=== PATIENT | male | born 1940 | race Caucasian/White ===

== ENCOUNTER 2021-08-26 15:02 | Emergency (ER) | payer MEDICARE, BC ==
[2021-08-26] MEDS: Albuterol/Ipratropium 3.0-0.5 MG/3 ML Neb Soln NEB ONE (16:00)
[2021-08-26] MEDS: methylPREDNISolone Sodium Succinate 125 MG/2 ML SDV IM ONE (16:00)
--- NOTE | 2021-08-26 16:45 | EDM.PDOC ---
ED HPI GENERAL MEDICAL PROBLEM - General Chief Complaint: Respiratory Problem Stated Complaint: POSSIBLE COVID Time Seen by Provider: 08/26/21 15:15 Source of Information: Reports: Patient, Family History Limitations: Reports: No Limitations - History of Present Illness INITIAL COMMENTS - FREE TEXT/NARRATIVE: Patient presented to the ED because of dyspnea,coughing productive of grayish phlegm for several days. There is no associated fever, chills, N/V/D. She has a history of COPD,Asthma and stage lung CA in which he underwent chemotherapy and radiation. He was seen in the clinic today and subsequently referred to the ED for further evaluation. - Related Data Allergies Allergy/AdvReac Type Severity Reaction Status Date / Time Penicillins Allergy Severe Anaphylactic Verified 08/26/21 15:20 Shock Home Meds: Home Meds Tamsulosin [Flomax] 0.4 mg PO DAILY 02/18/16 [History] atorvaSTATin [Lipitor] 40 mg PO BEDTIME 02/18/16 [History] Albuterol Sulfate [Albuterol Sulfate Hfa] 2 inh IH Q4H PRN #1 hfa.aer.ad 08/26/21 [Rx] Albuterol Sulfate [Albuterol Sulfate Hfa] 2 puff IH Q4H PRN 08/26/21 [History] Albuterol/Ipratropium [DuoNeb 3.0-0.5 MG/3 ML] 3 ml INH Q4HR PRN #90 ml 08/26/21 [Rx] Azithromycin [Zithromax] 500 mg PO DAILY #5 tab 08/26/21 [Rx] Umeclidinium Brm/Vilanterol Tr [Anoro Ellipta 62.5-25 MCG] 1 puff INH DAILY 08/26/21 [History] predniSONE [Prednisone] 40 mg PO DAILY #10 tablet 08/26/21 [Rx] Past Medical History HEENT History: Reports: Cataract, Impaired Vision Cardiovascular History: Reports: Aneurysm, High Cholesterol, Hypertension, Other (See Below) Other Cardiovascular History: AAA, BILATERAL CAROTID ARTERY DISEASE Respiratory History: Reports: COPD Gastrointestinal History: Reports: None Genitourinary History: Reports: BPH, Other (See Below) Other Genitourinary History: MALIGNANT NEOPLASM OF PROSTATE, ELEVATED PSA, NODULAR PROSTATE WITH URINARY OBSTRUCTION, PROSTATE CANCER S/P RADIATION Musculoskeletal History: Reports: Fracture, Other (See Below) Other Musculoskeletal History: OSTEOARTHRTIS KNEE. Neurological History: Reports: None Psychiatric History: Reports: None Endocrine/Metabolic History: Reports: None Hematologic History: Reports: Anemia Immunologic History: Reports: None Oncologic (Cancer) History: Reports: Lung, Prostate Dermatologic History: Reports: None - Infectious Disease History Infectious Disease History: Reports: Chicken Pox, Measles - Past Surgical History Head Surgeries/Procedures: Reports: None HEENT Surgical History: Reports: Oral Surgery, Tonsillectomy Cardiovascular Surgical History: Reports: None Respiratory Surgical History: Reports: None, Lung Biopsies GI Surgical History: Reports: None, Colonoscopy, EGD Male Surgical History: Reports: None Endocrine Surgical History: Reports: None Neurological Surgical History: Reports: None Musculoskeletal Surgical History: Reports: Arthroscopic Knee Other Musculoskeletal Surgeries/Procedures:: RIGHT KNEE SCOPE Social & Family History - Family History Cardiac: Reports: Hypertension Psychiatric: Reports: None Endocrine/Metabolic: Reports: None - Tobacco Use Tobacco Use Status *Q: Current Every Day Tobacco User Years of Tobacco use: 50 Packs/Tins Daily: 0 - Recreational Drug Use Recreational Drug Use: No ED ROS GENERAL - Review of Systems Review Of Systems: See Below Constitutional: Reports: No Symptoms HEENT: Reports: No Symptoms Respiratory: Reports: Shortness of Breath, Cough, Sputum Cardiovascular: Reports: No Symptoms Endocrine: Reports: No Symptoms GI/Abdominal: Reports: No Symptoms : Reports: No Symptoms Musculoskeletal: Reports: No Symptoms Neurological: Reports: No Symptoms Psychiatric: Reports: No Symptoms ED EXAM, GENERAL - Physical Exam Exam: See Below Exam Limited By: No Limitations General Appearance: Alert, No Apparent Distress Ears: Normal External Exam, Normal Canal, Hearing Grossly Normal, Normal TMs Nose: Normal Inspection, Normal Mucosa, No Blood Throat/Mouth: Normal Inspection, Normal Lips, Normal Teeth, Normal Gums, Normal Oropharynx, Normal Voice Head: Atraumatic, Normocephalic Neck: Normal Inspection, Supple, Non-Tender, Full Range of Motion Respiratory/Chest: No Respiratory Distress, Rhonchi, Wheezing Cardiovascular: Normal Peripheral Pulses, Regular Rate, Rhythm, No Edema, No Gallop, No JVD, No Murmur GI/Abdominal: Normal Bowel Sounds, Soft, Non-Tender, No Organomegaly Back Exam: Normal Inspection, Full Range of Motion Extremities: Normal Inspection, Normal Range of Motion, Non-Tender Neurological: Alert, Oriented, CN II-XII Intact, Normal Cognition, Normal Gait, Normal Reflexes, No Motor/Sensory Deficits Course - Vital Signs Text/Narrative:: Lab/CXR result was reviewed and discussed with patient Yecenia bellamy Solumedrol 125 mg IM x1 His oxygen saturation was 97% on RA with the above treatment and his dyspnea resolved. Last Recorded V/S: Last Vital Signs Temp Pulse Resp BP Pulse Ox 96 08/26/21 15:10 - Orders/Labs/Meds Orders: Active Orders 24 hr Category Date Time Status RT Aerosol Therapy [RC] ASDIRECTED Care 08/26/21 15:39 Active Chest 1V Frontal [CR] Stat Exams 08/26/21 15:36 Taken Labs: Laboratory Tests 08/26/21 08/26/21 08/26/21 Range/Units 16:00 16:00 16:00 WBC 4.2 (3.2-10.1) x10-3/uL RBC 3.13 L (3.90-5.90) x10(6)uL Hgb 11.0 L (12.9-17.7) g/dL Hct 32.5 L (38.3-50.1) % MCV 103.8 H (80.8-98.7) fL MCH 35.2 H (27.0-33.3) pg MCHC 33.9 (28.7-35.3) g/dL RDW 14.6 (12.4-15.0) % Plt Count 246 (117-477) x10(3)uL MPV 6.9 (6.7-11.0) fL Neut % (Auto) 84.6 H (40.3-71.8) % Lymph % (Auto) 4.9 L (15.8-45.3) % [place] % (Auto) 10.0 (5.5-15.2) % Eos % (Auto) 0.2 (0.1-6.8) % Baso % (Auto) 0.3 (0.3-3.8) % Neut # (Auto) 3.6 (1.7-6.9) x10-3/uL Lymph # (Auto) 0.2 L (0.5-4.5) x10-3/uL [place] # (Auto) 0.4 (0.0-1.2) x10-3/uL Eos # (Auto) 0.0 (0.0-0.6) x10-3/uL Baso # (Auto) 0.0 (0.0-0.3) x10-3/uL Sodium 140 (135-145) mmol/L Potassium 4.0 (3.5-5.3) mmol/L Chloride 100 (100-110) mmol/L Carbon Dioxide 29 (21-32) mmol/L BUN 16 (7-18) mg/dL Creatinine 1.2 (0.70-1.30) mg/dL Est Cr Clr Drug Dosing TNP Estimated GFR (MDRD) 58 L (>60) BUN/Creatinine Ratio 13.3 (9-20) Glucose 98 (80-116) mg/dL Calcium 8.9 (8.6-10.2) mg/dL Total Bilirubin 0.5 (0.1-1.3) mg/dL AST 33 H (5-25) IU/L ALT 23 (12-36) U/L Alkaline Phosphatase 92 (56-112) IU/L Troponin I 17.2 (4.0-60.3) pg/mL NT-Pro-B Natriuret Pep 647 H (<=450) pg/mL Total Protein 8.1 H (6.0-8.0) g/dL Albumin 3.0 L (3.2-4.6) g/dL Globulin 5.1 g/dL Albumin/Globulin Ratio 0.6 SARS-CoV-2 RNA (EDILIA) (NEGATIVE) 08/26/21 Range/Units 16:10 WBC (3.2-10.1) x10-3/uL RBC (3.90-5.90) x10(6)uL Hgb (12.9-17.7) g/dL Hct (38.3-50.1) % MCV (80.8-98.7) fL MCH (27.0-33.3) pg MCHC (28.7-35.3) g/dL RDW (12.4-15.0) % Plt Count (117-477) x10(3)uL MPV (6.7-11.0) fL Neut % (Auto) (40.3-71.8) % Lymph % (Auto) (15.8-45.3) % [place] % (Auto) (5.5-15.2) % Eos % (Auto) (0.1-6.8) % Baso % (Auto) (0.3-3.8) % Neut # (Auto) (1.7-6.9) x10-3/uL Lymph # (Auto) (0.5-4.5) x10-3/uL [place] # (Auto) (0.0-1.2) x10-3/uL Eos # (Auto) (0.0-0.6) x10-3/uL Baso # (Auto) (0.0-0.3) x10-3/uL Sodium (135-145) mmol/L Potassium (3.5-5.3) mmol/L Chloride (100-110) mmol/L Carbon Dioxide (21-32) mmol/L BUN (7-18) mg/dL Creatinine (0.70-1.30) mg/dL Est Cr Clr Drug Dosing Estimated GFR (MDRD) (>60) BUN/Creatinine Ratio (9-20) Glucose (80-116) mg/dL Calcium (8.6-10.2) mg/dL Total Bilirubin (0.1-1.3) mg/dL AST (5-25) IU/L ALT (12-36) U/L Alkaline Phosphatase (56-112) IU/L Troponin I (4.0-60.3) pg/mL NT-Pro-B Natriuret Pep (<=450) pg/mL Total Protein (6.0-8.0) g/dL Albumin (3.2-4.6) g/dL Globulin g/dL Albumin/Globulin Ratio SARS-CoV-2 RNA (EDILIA) Negative (NEGATIVE) Meds: Medications Discontinued Medications Generic Name Dose Route Start Last Admin Trade Name Freq PRN Reason Stop Dose Admin Albuterol/Ipratropium 3 ml 08/26/21 15:38 08/26/21 16:00 Albuterol/Ipratropium 3.0-0.5 Mg/3 Ml Neb Soln NEB 08/26/21 15:39 3 ml ONETIME ONE Administration Methylprednisolone Sodium Succinate 125 mg 08/26/21 15:38 08/26/21 16:00 Methylprednisolone Sodium Succinate 125 Mg/2 Ml Sdv IM 08/26/21 15:39 125 mg ONETIME ONE Administration Departure - Departure Time of Disposition: 17:00 Disposition: Home, Self-Care 01 Condition: Good Clinical Impression: COPD exacerbation, Asthma exacerbation - Discharge Information Prescriptions: Albuterol Sulfate [Albuterol Sulfate Hfa] 2 inh IH Q4H PRN #1 hfa.aer.ad PRN Reason: Shortness Of Breath Albuterol/Ipratropium [DuoNeb 3.0-0.5 MG/3 ML] 3 ml INH Q4HR PRN #90 ml PRN Reason: Shortness Of Breath predniSONE [Prednisone] 40 mg PO DAILY #10 tablet Azithromycin [Zithromax] 500 mg PO DAILY #5 tab Instructions: Chronic Obstructive Pulmonary Disease Exacerbation, [id number], Asthma Attack Referrals: PCP,None [Primary Care Provider] - Forms: ED Department Discharge Additional Instructions: Please read discharge instructions on Asthma and COPD exacerbation Albuterol neb every 4 hours as needed Prednisone 40 mg daily for 5 days starting tomorrow morning Zithromax 500 mg daily for 5 days starting today Follow up as needed Sepsis Event Note (ED) - Focused Exam Vital Signs: Vital Signs Pulse Ox 08/26/21 15:10 96 - My Orders Last 24 Hours: My Active Orders 08/26/21 15:36 Chest 1V Frontal [CR] Stat 08/26/21 15:39 RT Aerosol Therapy [RC] ASDIRECTED - Assessment/Plan Last 24 Hours: My Active Orders 08/26/21 15:36 Chest 1V Frontal [CR] Stat 08/26/21 15:39 RT Aerosol Therapy [RC] ASDIRECTED
[2021-08-26 17:43] VITALS: BP 149/92; PULSE 62
--- NOTE | 2021-08-27 10:09 | CR ---
CHEST ONE VIEW INDICATION: Cough/dyspnea/[id number] history of smoking. FINDINGS: AP portable upright view of the chest 08/26/21 was compared with 02/21/16. The heart remains normal in size. The aorta is tortuous with calcification in the arch and descending portion. Moderate dextroconcave scoliosis is noted at the lower middle thoracic spine. Findings compatible with COPD are noted. Somewhat heavy markings are scattered throughout the lungs likely due to pulmonary fibrosis. No consolidating pneumonia or effusion was identified. However, minimal patchy bronchial pneumonia is difficult to exclude in a few areas of heavy markings including suprahilar on the left, perihilar on the right and basilar on the right. This should be correlated clinically. IMPRESSION: 1. No definite acute process but difficult to exclude areas of patchy bronchial pneumonia bilaterally. 2. COPD. 3. Pulmonary fibrosis. 4. ASD aorta. 5. Scoliosis. MTDD
== END 2021-08-26 17:30 | disposition home or self-care (01) ==
LOC: FB.ED 15:02
DX: J44.1 Chronic obstructive pulmonary disease with (acute) exacerbation (principal); E78.00 Pure hypercholesterolemia, unspecified; I10 Essential (primary) hypertension; N40.0 Benign prostatic hyperplasia without lower urinary tract symptoms; Z20.822 Contact with and (suspected) exposure to COVID-19; Z88.0 Allergy status to penicillin; Z79.899 Other long term (current) drug therapy; Z72.0 Tobacco use
CPT/HCPCS: 36415; 71045; 80053; 83880; 84484; 85025; 94640; 96372; 99285-25; J2930; J7620-GY; U0002

== ENCOUNTER 2021-08-31 09:24 | Observation (INO) | payer MEDICARE, BC ==
--- NOTE | 2021-08-31 09:42 | EDM.PDOC ---
ED HPI GENERAL MEDICAL PROBLEM - General Chief Complaint: Respiratory Problem Stated Complaint: ASTHMA Time Seen by Provider: 08/31/21 09:30 Source of Information: Reports: Patient, Old Records, RN History Limitations: Reports: No Limitations - History of Present Illness INITIAL COMMENTS - FREE TEXT/NARRATIVE: 80 yo male was seen here 5 d ago for respiratory complaints. He had a CXR that showed pulmonary fibrosis and COPD. He was sent home with bronchodilators, azithromycin and prednisone. He has not followed up with his primary since then. His Covid test on that visit was negative and he had a normal WBC ct. His oxygen sats on [employer] were 96%. Since his ER visit he has not run a fever, but is more SOB. He will be out of his prednisone tomorrow. 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 He has a nebulizer at home that he did use today with some benefit. Is still smoking, but has cut down. Has stage 2 lung CA. Onset: Gradual Duration: Day(s):, Getting Worse Location: Reports: Chest Quality: Reports: Other (pain not reported) Severity: Moderate Improves with: Reports: Rest Worsens with: Reports: Movement (exertion) Context: Reports: Other (See HPI) Associated Symptoms: Reports: Cough, Shortness of Breath. 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 (see below) (See HPI) - Related Data Allergies Allergy/AdvReac Type Severity Reaction Status Date / Time Penicillins Allergy Severe Anaphylactic Verified 08/26/21 15:20 Shock Home Meds: Home Meds Tamsulosin [Flomax] 0.4 mg PO DAILY 02/18/16 [History] atorvaSTATin [Lipitor] 40 mg PO BEDTIME 02/18/16 [History] Albuterol Sulfate [Albuterol Sulfate Hfa] 2 inh IH Q4H PRN #1 hfa.aer.ad 08/26/21 [Rx] Albuterol Sulfate [Albuterol Sulfate Hfa] 2 puff IH Q4H PRN 08/26/21 [History] Albuterol/Ipratropium [DuoNeb 3.0-0.5 MG/3 ML] 3 ml INH Q4HR PRN #90 ml 08/26/21 [Rx] Azithromycin [Zithromax] 500 mg PO DAILY #5 tab 08/26/21 [Rx] Umeclidinium Brm/Vilanterol Tr [Anoro Ellipta 62.5-25 MCG] 1 puff INH DAILY 08/26/21 [History] predniSONE [Prednisone] 40 mg PO DAILY #10 tablet 08/26/21 [Rx] Past Medical History HEENT History: Reports: Cataract, Impaired Vision Cardiovascular History: Reports: Aneurysm, High Cholesterol, Hypertension, Other (See Below) Other Cardiovascular History: AAA, BILATERAL CAROTID ARTERY DISEASE Respiratory History: Reports: COPD Gastrointestinal History: Reports: None Genitourinary History: Reports: BPH, Other (See Below) Other Genitourinary History: MALIGNANT NEOPLASM OF PROSTATE, ELEVATED PSA, NODULAR PROSTATE WITH URINARY OBSTRUCTION, PROSTATE CANCER S/P RADIATION Musculoskeletal History: Reports: Fracture, Other (See Below) Other Musculoskeletal History: OSTEOARTHRTIS KNEE. Neurological History: Reports: None Psychiatric History: Reports: None Endocrine/Metabolic History: Reports: None Hematologic History: Reports: Anemia Immunologic History: Reports: None Oncologic (Cancer) History: Reports: Lung, Prostate Dermatologic History: Reports: None - Infectious Disease History Infectious Disease History: Reports: Chicken Pox, Measles - Past Surgical History Head Surgeries/Procedures: Reports: None HEENT Surgical History: Reports: Oral Surgery, Tonsillectomy Cardiovascular Surgical History: Reports: None Respiratory Surgical History: Reports: None, Lung Biopsies GI Surgical History: Reports: None, Colonoscopy, EGD Male Surgical History: Reports: None Endocrine Surgical History: Reports: None Neurological Surgical History: Reports: None Musculoskeletal Surgical History: Reports: Arthroscopic Knee Other Musculoskeletal Surgeries/Procedures:: RIGHT KNEE SCOPE Social & Family History - Family History Cardiac: Reports: Hypertension Psychiatric: Reports: None Endocrine/Metabolic: Reports: None ED ROS GENERAL - Review of Systems Review Of Systems: See Below Constitutional: Reports: Malaise. Denies: Fever, Chills HEENT: Reports: No Symptoms Respiratory: Reports: Shortness of Breath, Cough, Sputum (sheriff). Denies: Wheezing, Hemoptysis Cardiovascular: Reports: No Symptoms GI/Abdominal: Reports: No Symptoms : Reports: No Symptoms Musculoskeletal: Reports: No Symptoms Skin: Reports: No Symptoms Neurological: Reports: No Symptoms Psychiatric: Reports: No Symptoms ED EXAM, GENERAL - Physical Exam Exam: See Below Exam Limited By: No Limitations General Appearance: Alert, WD/WN, No Apparent Distress Eye Exam: Bilateral Eye: Normal Inspection Ears: Normal External Exam, Normal Canal, Hearing Grossly Normal Ear Exam: Bilateral Ear: Auricle Normal, Canal Normal, TM normal Nose: Normal Inspection, No Blood Throat/Mouth: Normal Inspection, Normal Lips, Normal Oropharynx, Normal Voice, N o Airway Compromise, Other (slightly dry oral mucosa) Head: Atraumatic, Normocephalic Neck: Normal Inspection Respiratory/Chest: Decreased Breath Sounds, Other (mild tachypnea). No: Normal Breath Sounds, Crackles, Rales, Rhonchi, Wheezing, Accessory Muscle Use Cardiovascular: Regular Rate, Rhythm, No Edema GI/Abdominal: Soft, Non-Tender Back Exam: Normal Inspection Extremities: Normal Inspection, Normal Range of Motion, Non-Tender, No Pedal Edema Neurological: Alert, Oriented, CN II-XII Intact, Normal Cognition, No Motor/Sensory Deficits Psychiatric: Normal Affect, Normal Mood Skin Exam: Warm, Dry, Intact, Normal Color, No Rash Course - Vital Signs Text/Narrative:: Discussed with Dr. Gatica @ 1312 Last Recorded V/S: Last Vital Signs Temp 36.9 C 08/31/21 09:24 Pulse 59 L 08/31/21 09:24 Resp 20 08/31/21 09:24 BP 159/90 H 08/31/21 09:24 Pulse Ox 94 L 08/31/21 09:24 - Orders/Labs/Meds Orders: Active Orders 24 hr Category Date Time Status Oxygen Therapy Adult [Oxygen Therapy, ED] [RC] Care 08/31/21 09:45 Active ASDIRECTED RT Aerosol Therapy [RC] ASDIRECTED Care 08/31/21 09:46 Active RT Aerosol Therapy [RC] ASDIRECTED Care 08/31/21 11:05 Active Ang Chest [CT] Stat Exams 08/31/21 11:18 Taken Chest 2V [CR] Stat Exams 08/31/21 09:45 Ordered UA W/MICROSCOPIC [URIN] Stat Lab 08/31/21 09:44 Ordered Lactated Ringers [Ringers, Lactated] 1,000 ml Med 08/31/21 10:45 Active IV ASDIRECTED Sodium Chloride 0.9% [Saline Flush] Med 08/31/21 09:45 Active 10 ml FLUSH ASDIRECTED PRN Saline Lock Insert [OM.PC] Routine Oth 08/31/21 09:45 Ordered Medication Orders Lactated Ringer's (Ringers, Lactated) 1,000 mls @ 150 mls/hr IV ASDIRECTED JAZMIN Last Admin: 08/31/21 11:11 Dose: 150 mls/hr Documented by: DIFFCAL Sodium Chloride (Sodium Chloride 0.9% 10 Ml Syringe) 10 ml FLUSH ASDIRECTED PRN PRN Reason: Keep Vein Open Labs: Laboratory Tests 08/31/21 08/31/21 08/31/21 Range/Units 09:55 09:55 09:55 WBC 3.2 (3.2-10.1) x10-3/uL RBC 3.19 L (3.90-5.90) x10(6)uL Hgb 10.9 L (12.9-17.7) g/dL Hct 33.1 L (38.3-50.1) % MCV 103.7 H (80.8-98.7) fL MCH 34.2 H (27.0-33.3) pg MCHC 33.0 (28.7-35.3) g/dL RDW 15.1 H (12.4-15.0) % Plt Count 266 (117-477) x10(3)uL D-Dimer, Quantitative (0.0-0.59) mg/LFEU Sodium 143 (135-145) mmol/L Potassium 4.4 (3.5-5.3) mmol/L Chloride 103 (100-110) mmol/L Carbon Dioxide 33 H (21-32) mmol/L BUN 25 H (7-18) mg/dL Creatinine 1.2 (0.70-1.30) mg/dL Est Cr Clr Drug Dosing TNP Estimated GFR (MDRD) 58 L (>60) BUN/Creatinine Ratio 20.8 H (9-20) Glucose 87 (80-116) mg/dL Calcium 8.6 (8.6-10.2) mg/dL C-Reactive Protein 7.7 H* (0.5-0.9) mg/dL SARS-CoV-2 RNA (EDILIA) (NEGATIVE) 08/31/21 08/31/21 Range/Units 09:55 10:14 WBC (3.2-10.1) x10-3/uL RBC (3.90-5.90) x10(6)uL Hgb (12.9-17.7) g/dL Hct (38.3-50.1) % MCV (80.8-98.7) fL MCH (27.0-33.3) pg MCHC (28.7-35.3) g/dL RDW (12.4-15.0) % Plt Count (117-477) x10(3)uL D-Dimer, Quantitative 0.81 H (0.0-0.59) mg/LFEU Sodium (135-145) mmol/L Potassium (3.5-5.3) mmol/L Chloride (100-110) mmol/L Carbon Dioxide (21-32) mmol/L BUN (7-18) mg/dL Creatinine (0.70-1.30) mg/dL Est Cr Clr Drug Dosing Estimated GFR (MDRD) (>60) BUN/Creatinine Ratio (9-20) Glucose (80-116) mg/dL Calcium (8.6-10.2) mg/dL C-Reactive Protein (0.5-0.9) mg/dL SARS-CoV-2 RNA (EDILIA) Negative (NEGATIVE) Meds: Medications Generic Name Dose Route Start Last Admin Trade Name Freq PRN Reason Stop Dose Admin Lactated Ringer's 1,000 mls @ 150 mls/hr 08/31/21 10:45 08/31/21 11:11 Ringers, Lactated IV 150 mls/hr ASDIRECTED JAZMIN Administration Sodium Chloride 10 ml 08/31/21 09:45 Sodium Chloride 0.9% 10 Ml Syringe FLUSH ASDIRECTED PRN Keep Vein Open Discontinued Medications Generic Name Dose Route Start Last Admin Trade Name Freq PRN Reason Stop Dose Admin Albuterol 2.5 mg 08/31/21 09:46 08/31/21 10:01 Albuterol 0.083% 2.5 Mg/3 Ml Neb Soln NEB 08/31/21 09:47 2.5 mg ONETIME ONE Administration Albuterol/Ipratropium 3 ml 08/31/21 11:05 08/31/21 11:10 Albuterol/Ipratropium 3.0-0.5 Mg/3 Ml Neb Soln NEB 08/31/21 11:06 3 ml ONETIME ONE Administration Iopamidol 66 ml 08/31/21 11:59 08/31/21 12:02 Iopamidol 755 Mg/Ml 75 Ml Bottle IV 08/31/21 12:00 66 ml ONETIME ONE Administration - Radiology Interpretation Free Text/Narrative:: CXR-no acute changes angio chest-no PE, severe emphysema CT Results Date: 08/31/21 CT Results Time: 12:50 - Re-Assessments/Exams Free Text/Narrative Re-Assessment/Exam: 08/31/21 13:38 Got some relief with nebs here in ER. Departure - Departure Time of Disposition: 14:00 Disposition: Admitted As Inpatient 64 Condition: Fair Clinical Impression: Emphysema lung Qualifiers: Emphysema type: unspecified Qualified Code(s): J43.9 - Emphysema, unspecified Dyspnea Qualifiers: Dyspnea type: shortness of breath Qualified Code(s): R06.02 - Shortness of breath; R06.00 - Dyspnea, unspecified; R06.01 - Orthopnea - Discharge Information *PRESCRIPTION DRUG MONITORING PROGRAM REVIEWED*: Not Applicable *COPY OF PRESCRIPTION DRUG MONITORING REPORT IN PATIENT WILLIAM: Not Applicable Referrals: PCP,None [Primary Care Provider] - Forms: ED Department Discharge Sepsis Event Note (ED) - Focused Exam Vital Signs: Vital Signs Temp Pulse Resp BP Pulse Ox 08/31/21 09:24 36.9 C 59 L 20 159/90 H 94 L - My Orders Last 24 Hours: My Active Orders 08/31/21 09:44 UA W/MICROSCOPIC [URIN] Stat 08/31/21 09:45 Oxygen Therapy Adult [Oxygen Therapy, ED] [RC] ASDIRECTED Chest 2V [CR] Stat Sodium Chloride 0.9% [Saline Flush] 10 ml FLUSH ASDIRECTED PRN Saline Lock Insert [OM.PC] Routine 08/31/21 09:46 RT Aerosol Therapy [RC] ASDIRECTED 08/31/21 10:45 Lactated Ringers [Ringers, Lactated] 1,000 ml IV ASDIRECTED 08/31/21 11:05 RT Aerosol Therapy [RC] ASDIRECTED 08/31/21 11:18 Ang Chest [CT] Stat - Assessment/Plan Last 24 Hours: My Active Orders 08/31/21 09:44 UA W/MICROSCOPIC [URIN] Stat 08/31/21 09:45 Oxygen Therapy Adult [Oxygen Therapy, ED] [RC] ASDIRECTED Chest 2V [CR] Stat Sodium Chloride 0.9% [Saline Flush] 10 ml FLUSH ASDIRECTED PRN Saline Lock Insert [OM.PC] Routine 08/31/21 09:46 RT Aerosol Therapy [RC] ASDIRECTED 08/31/21 10:45 Lactated Ringers [Ringers, Lactated] 1,000 ml IV ASDIRECTED 08/31/21 11:05 RT Aerosol Therapy [RC] ASDIRECTED 08/31/21 11:18 Ang Chest [CT] Stat
[2021-08-31] MEDS ORDERED: Albuterol 0.083% 2.5 MG/3 ML Neb Soln NEB ONE (09:46)
[2021-08-31] MEDS ORDERED: Albuterol/Ipratropium 3.0-0.5 MG/3 ML Neb Soln NEB ONE (11:05)
[2021-08-31] MEDS: Lactated Ringers 1,000 ML IV SCH ×2 (11:11→20:25)
[2021-08-31] MEDS ORDERED: Iopamidol 755 Mg/ML 75 ML Bottle IV ONE (11:59)
--- NOTE | 2021-08-31 14:18 | PCM.HP.2 ---
H&P History of Present Illness - General Date of Service: 08/31/21 Admit Problem/Dx: Admission Diagnosis/Problem Admission Diagnosis/Problem COPD, Moderate chronic obstructive pulmonary disease Source of Information: Patient, Old Records History Limitations: Reports: No Limitations - History of Present Illness Initial Comments - Free Text/Narative: This is an 80-year-old male patient that is over week history of feeling short of breath. He was seen in the clinic and was told by the nurse practitioner that he would be admitted and sent to the ER. The ER doctor evaluated him healthy go home send him home on 40 mg of prednisone and Zithromax. He stated he felt better for a day then it got worse. He has history of lung cancer and was just s een by oncology. His lung cancer is much improved. Stage II. He has smoked for over 50 years little less than a pack a day. Is trying to quit but he is still smoking. He has a dry cough, short of breath. He denies wheezing, chest pain, palpitations, fevers, chills, nasal congestion, leg swelling, PND or orthopnea. No history of CHF. - Related Data Allergies/Adverse Reactions: Allergies Allergy/AdvReac Type Severity Reaction Status Date / Time Penicillins Allergy Severe Anaphylactic Verified 08/26/21 15:20 Shock Home Medications: Home Meds Tamsulosin [Flomax] 0.4 mg PO DAILY 02/18/16 [History] atorvaSTATin [Lipitor] 40 mg PO BEDTIME 02/18/16 [History] Albuterol Sulfate [Albuterol Sulfate Hfa] 2 inh IH Q4H PRN #1 [id number] 08/26/21 [Rx] Albuterol Sulfate [Albuterol Sulfate Hfa] 2 puff IH Q4H PRN 08/26/21 [History] Albuterol/Ipratropium [DuoNeb 3.0-0.5 MG/3 ML] 3 ml INH Q4HR PRN #90 ml 08/26/21 [Rx] Azithromycin [Zithromax] 500 mg PO DAILY #5 tab 08/26/21 [Rx] Umeclidinium Brm/Vilanterol Tr [Anoro Ellipta 62.5-25 MCG] 1 puff INH DAILY 08/26/21 [History] predniSONE [Prednisone] 40 mg PO DAILY #10 tablet 08/26/21 [Rx] Past Medical History HEENT History: Reports: Cataract, Impaired Vision Cardiovascular History: Reports: Aneurysm, High Cholesterol, Hypertension, Other (See Below) Other Cardiovascular History: AAA, BILATERAL CAROTID ARTERY DISEASE Respiratory History: Reports: COPD Gastrointestinal History: Reports: None Genitourinary History: Reports: BPH, Other (See Below) Other Genitourinary History: MALIGNANT NEOPLASM OF PROSTATE, ELEVATED PSA, NODULAR PROSTATE WITH URINARY OBSTRUCTION, PROSTATE CANCER S/P RADIATION Musculoskeletal History: Reports: Fracture, Other (See Below) Other Musculoskeletal History: OSTEOARTHRTIS KNEE. Neurological History: Reports: None Psychiatric History: Reports: None Endocrine/Metabolic History: Reports: None Hematologic History: Reports: Anemia Immunologic History: Reports: None Oncologic (Cancer) History: Reports: Lung, Prostate Dermatologic History: Reports: None - Infectious Disease History Infectious Disease History: Reports: Chicken Pox, Measles - Past Surgical History Head Surgeries/Procedures: Reports: None HEENT Surgical History: Reports: Oral Surgery, Tonsillectomy Cardiovascular Surgical History: Reports: None Respiratory Surgical History: Reports: None, Lung Biopsies GI Surgical History: Reports: None, Colonoscopy, EGD Male Surgical History: Reports: None Endocrine Surgical History: Reports: None Neurological Surgical History: Reports: None Musculoskeletal Surgical History: Reports: Arthroscopic Knee Other Musculoskeletal Surgeries/Procedures:: RIGHT KNEE SCOPE Social & Family History - Family History Family Medical History: No Pertinent Family History Cardiac: Reports: Hypertension Psychiatric: Reports: None Endocrine/Metabolic: Reports: None - Tobacco Use Tobacco Use Status *Q: Current Every Day Tobacco User Years of Tobacco use: 50 Packs/Tins Daily: 0.5 - Caffeine Use Caffeine Use: Reports: Coffee - Recreational Drug Use Recreational Drug Use: No H&P Review of Systems - Review of Systems: Review Of Systems: See Below General: Reports: Weakness HEENT: Reports: No Symptoms Pulmonary: Reports: Shortness of Breath, Cough. Denies: Wheezing, Sputum, Hemoptysis Cardiovascular: Reports: No Symptoms Gastrointestinal: Reports: No Symptoms Genitourinary: Reports: No Symptoms Musculoskeletal: Reports: No Symptoms Skin: Reports: No Symptoms Psychiatric: Reports: No Symptoms Neurological: Reports: No Symptoms Hematologic/Lymphatic: Reports: No Symptoms Immunologic: Reports: No Symptoms Exam - Exam Exam: See Below - Vital Signs Vital Signs: Last Vital Signs Temp 98.4 F 08/31/21 09:24 Pulse 59 L 08/31/21 09:24 Resp 20 08/31/21 09:24 BP 159/90 H 08/31/21 09:24 Pulse Ox 94 L 08/31/21 09:24 Weight: 175 lb 4.8 oz - Exam General: Alert, Oriented, Cooperative HEENT: PERRLA, Hearing Intact, Posterior Pharynx Clear, TMs Clear Neck: Supple, Trachea Midline. No: Carotid Bruit, JVD Lungs: Decreased Breath Sounds (Patient does not move much air. Not able to hear any breath sounds bilateral.) Cardiovascular: Regular Rate, Regular Rhythm. No: Systolic Murmur GI/Abdominal Exam: Normal Bowel Sounds, Soft, Non-Tender, No Distention Back Exam: Normal Inspection Skin: Warm, Dry, Intact Neurological: Normal Speech, Normal Tone Neuro Extensive - Mental Status: Alert, Oriented x3, Normal Mood/Affect, Normal Cognition Psychiatric: Alert, Normal Affect, Normal Mood - Patient Data Lab Results Last 24 hrs: Laboratory Results - last 24 hr 08/31/21 08/31/21 08/31/21 Range/Units 09:55 09:55 09:55 WBC 3.2 (3.2-10.1) x10-3/uL RBC 3.19 L (3.90-5.90) x10(6)uL Hgb 10.9 L (12.9-17.7) g/dL Hct 33.1 L (38.3-50.1) % MCV 103.7 H (80.8-98.7) fL MCH 34.2 H (27.0-33.3) pg MCHC 33.0 (28.7-35.3) g/dL RDW 15.1 H (12.4-15.0) % Plt Count 266 (117-477) x10(3)uL D-Dimer, Quantitative (0.0-0.59) mg/LFEU Sodium 143 (135-145) mmol/L Potassium 4.4 (3.5-5.3) mmol/L Chloride 103 (100-110) mmol/L Carbon Dioxide 33 H (21-32) mmol/L BUN 25 H (7-18) mg/dL Creatinine 1.2 (0.70-1.30) mg/dL Est Cr Clr Drug Dosing TNP Estimated GFR (MDRD) 58 L (>60) BUN/Creatinine Ratio 20.8 H (9-20) Glucose 87 (80-116) mg/dL Calcium 8.6 (8.6-10.2) mg/dL C-Reactive Protein 7.7 H* (0.5-0.9) mg/dL SARS-CoV-2 RNA (EDILIA) (NEGATIVE) 08/31/21 08/31/21 Range/Units 09:55 10:14 WBC (3.2-10.1) x10-3/uL RBC (3.90-5.90) x10(6)uL Hgb (12.9-17.7) g/dL Hct (38.3-50.1) % MCV (80.8-98.7) fL MCH (27.0-33.3) pg MCHC (28.7-35.3) g/dL RDW (12.4-15.0) % Plt Count (117-477) x10(3)uL D-Dimer, Quantitative 0.81 H (0.0-0.59) mg/LFEU Sodium (135-145) mmol/L Potassium (3.5-5.3) mmol/L Chloride (100-110) mmol/L Carbon Dioxide (21-32) mmol/L BUN (7-18) mg/dL Creatinine (0.70-1.30) mg/dL Est Cr Clr Drug Dosing Estimated GFR (MDRD) (>60) BUN/Creatinine Ratio (9-20) Glucose (80-116) mg/dL Calcium (8.6-10.2) mg/dL C-Reactive Protein (0.5-0.9) mg/dL SARS-CoV-2 RNA (EDILIA) Negative (NEGATIVE) Result Diagrams: 08/31/21 09:55 08/31/21 09:55 Sepsis Event Note - Evaluation Sepsis Screening Result: No Definite Risk - Focused Exam Vital Signs: Vital Signs Temp Pulse Resp BP Pulse Ox 08/31/21 09:24 98.4 F 59 L 20 159/90 H 94 L - Problem List (1) Squamous cell carcinoma lung SNOMED Code(s): 868790859, 371663013 ICD Code: C34.90 - MALIGNANT NEOPLASM OF UNSP PART OF UNSP BRONCHUS OR LUNG Status: Acute Current Visit: Yes (2) Palliative care status SNOMED Code(s): 683412352 ICD Code: Z51.5 - ENCOUNTER FOR PALLIATIVE CARE Status: Acute Current Visit: Yes (3) Weakness SNOMED Code(s): 34404074 ICD Code: R53.1 - WEAKNESS Status: Acute Current Visit: Yes (4) Anemia SNOMED Code(s): 461909818 ICD Code: D64.9 - ANEMIA, UNSPECIFIED Status: Acute Current Visit: No Qualifiers: Anemia type: iron deficiency (5) COPD exacerbation SNOMED Code(s): 623336588 ICD Code: J44.1 - CHRONIC OBSTRUCTIVE PULMONARY DISEASE W (ACUTE) EXACERBATION Status: Acute Current Visit: No (6) Prostate CA SNOMED Code(s): 976377080 ICD Code: C61 - MALIGNANT NEOPLASM OF PROSTATE Status: Chronic Current Visit: No Problem List Initiated/Reviewed/Updated: Yes Orders Last 24hrs: Active Orders 24 hr Category Date Time Status Admission Status [Patient Status] [ADT] Routine ADT 08/31/21 13:40 Active Cardiac Monitoring [RC] .As Directed Care 08/31/21 13:40 Active EKG Documentation Completion [RC] ASDIRECTED Care 08/31/21 14:08 Ordered Oxygen Therapy Adult [Oxygen Therapy, ED] [RC] Care 08/31/21 09:45 Active ASDIRECTED RT Aerosol Therapy [RC] ASDIRECTED Care 08/31/21 09:46 Active RT Aerosol Therapy [RC] ASDIRECTED Care 08/31/21 11:05 Active RT Aerosol Therapy [RC] ASDIRECTED Care 08/31/21 14:10 Ordered Up ad Sherice [RC] ASDIRECTED Care 08/31/21 14:09 Ordered Regular Diet [DIET] Diet 08/31/21 Dinner Ordered Ang Chest [CT] Stat Exams 08/31/21 11:18 Taken Chest 2V [CR] Stat Exams 08/31/21 09:45 Ordered TROPONIN I [CHEM] Routine Lab 08/31/21 14:08 Ordered UA W/MICROSCOPIC [URIN] Stat Lab 08/31/21 14:02 Received Albuterol/Ipratropium [DuoNeb 3.0-0.5 MG/3 ML] Med 08/31/21 14:15 Ordered 3 ml NEB Q4H Azithromycin [Zithromax] 500 mg Med 08/31/21 14:15 Ordered Sodium Chloride 0.9% [Normal Saline (AdvBag)] 250 ml IV Q24H Enoxaparin [Lovenox] Med 08/31/21 14:15 Ordered 40 mg SUBCUT Q24H Lactated Ringers [Ringers, Lactated] 1,000 ml Med 08/31/21 10:45 Active IV ASDIRECTED Sodium Chloride 0.9% [Saline Flush] Med 08/31/21 09:45 Active 10 ml FLUSH ASDIRECTED PRN methylPREDNISolone Sod Succ [Solu-MEDROL] Med 08/31/21 14:15 Ordered 125 mg IVPUSH Q8H Saline Lock Insert [OM.PC] Routine Oth 08/31/21 09:45 Ordered EKG 12 Lead [EK] Routine Ther 08/31/21 14:08 Ordered Medication Orders Albuterol/Ipratropium (Albuterol/Ipratropium 3.0-0.5 Mg/3 Ml Neb Soln) 3 ml NEB Q4H JAZMIN Enoxaparin Sodium (Enoxaparin 40 Mg/0.4 Ml Syringe) 40 mg SUBCUT Q24H JAZMIN Lactated Ringer's (Ringers, Lactated) 1,000 mls @ 125 mls/hr IV ASDIRECTED JAZMIN Last Admin: 08/31/21 11:11 Dose: 150 mls/hr Documented by: DIFFCAL Azithromycin 500 mg/ Sodium (Chloride) 250 mls @ 250 mls/hr IV Q24H JAZMIN Methylprednisolone Sodium Succinate (Methylprednisolone Sodium Succinate 125 Mg/2 Ml Sdv) 125 mg IVPUSH Q8H JAZMIN Sodium Chloride (Sodium Chloride 0.9% 10 Ml Syringe) 10 ml FLUSH ASDIRECTED PRN PRN Reason: Keep Vein Open Assessment/Plan Comment:: 1. Admit to observation care 2. Patient wants to be a full code. 3. Review the CT of the chest which is an angioma which ruled out pulmonary embolism, CHF and pneumonia. He has severe emphysema. 4. Zithromax and Solu-Medrol for his lungs. Also albuterol nebulizer every 4 hours while awake. 5. O2 to keep sats greater than 90%. 6. Lovenox for prophylaxis. 7. Regular diet 8. Up ad sherice. 9. To complete the workup I will do a troponin and EKG. 10. Patient can use his home medications here. His brought him. - Mortality Measure Prognosis:: Good
[2021-08-31] MEDS ORDERED: Azithromycin 500 MG in Sodium Chloride 0.9% 250 ML IV SCH (15:00)
[2021-08-31] MEDS: methylPREDNISolone Sodium Succinate 125 MG/2 ML SDV IVPUSH SCH ×2 (15:39→22:44)
[2021-08-31] MEDS: Enoxaparin 40 MG/0.4 ML Syringe SUBCUT SCH (15:48)
[2021-08-31] MEDS: Albuterol/Ipratropium 3.0-0.5 MG/3 ML Neb Soln NEB SCH ×3 (15:58→22:48)
[2021-08-31] MEDS: Sodium Chloride 0.9% 10 ML Syringe FLUSH PRN (22:45)
[2021-09-01] MEDS: Albuterol/Ipratropium 3.0-0.5 MG/3 ML Neb Soln NEB SCH ×6 (03:30→22:00)
[2021-09-01] MEDS: Lactated Ringers 1,000 ML IV SCH (04:25)
[2021-09-01] MEDS: Sodium Chloride 0.9% 10 ML Syringe FLUSH PRN ×3 (06:46→18:48)
[2021-09-01] MEDS: methylPREDNISolone Sodium Succinate 125 MG/2 ML SDV IVPUSH SCH ×2 (06:46→18:44)
--- NOTE | 2021-09-01 09:47 | PCM.PN ---
- General Info Date of Service: 09/01/21 Admission Dx/Problem (Free Text): He should states he feels better today breathing a little bit better. His cough is productive. He has no fevers, chills or chest pain or leg swelling. - Patient Data Vitals - Most Recent: Last Vital Signs Temp 98.3 F 09/01/21 04:00 Pulse 54 L 09/01/21 06:50 Resp 18 09/01/21 04:00 BP 151/85 H 09/01/21 04:00 Pulse Ox 98 09/01/21 06:50 Weight - Most Recent: 190 lb I&O - Last 24 Hours: Intake & Output 08/31/21 09/01/21 09/01/21 22:59 06:59 14:59 Intake Total 1407 1088 Balance 1407 1088 Lab Results Last 24 Hours: Laboratory Results - last 24 hr 08/31/21 08/31/21 08/31/21 Range/Units 09:55 09:55 09:55 WBC 3.2 (3.2-10.1) x10-3/uL RBC 3.19 L (3.90-5.90) x10(6)uL Hgb 10.9 L (12.9-17.7) g/dL Hct 33.1 L (38.3-50.1) % MCV 103.7 H (80.8-98.7) fL MCH 34.2 H (27.0-33.3) pg MCHC 33.0 (28.7-35.3) g/dL RDW 15.1 H (12.4-15.0) % Plt Count 266 (117-477) x10(3)uL D-Dimer, Quantitative (0.0-0.59) mg/LFEU Sodium 143 (135-145) mmol/L Potassium 4.4 (3.5-5.3) mmol/L Chloride 103 (100-110) mmol/L Carbon Dioxide 33 H (21-32) mmol/L BUN 25 H (7-18) mg/dL Creatinine 1.2 (0.70-1.30) mg/dL Est Cr Clr Drug Dosing TNP Estimated GFR (MDRD) 58 L (>60) BUN/Creatinine Ratio 20.8 H (9-20) Glucose 87 (80-116) mg/dL Calcium 8.6 (8.6-10.2) mg/dL Troponin I (4.0-60.3) pg/mL C-Reactive Protein 7.7 H* (0.5-0.9) mg/dL Urine Color (YELLOW) Urine Appearance (CLEAR) Urine pH (5.0-6.5) Ur Specific [place] (1.010-1.025) Urine Protein (NEGATIVE) mg/dL Urine Glucose (UA) (NORMAL) mg/dL Urine Ketones (NEGATIVE) mg/dL Urine Occult Blood (NEGATIVE) Urine Nitrite (NEGATIVE) Urine Bilirubin (NEGATIVE) Urine Urobilinogen (NEGATIVE) mg/dL Ur Leukocyte Esterase (NEGATIVE) Urine WBC (0-5) Ur Squamous Epith Cells (NS,R,O) Urine Bacteria (NS) SARS-CoV-2 RNA (EDILIA) (NEGATIVE) 08/31/21 08/31/21 08/31/21 Range/Units 09:55 09:55 10:14 WBC (3.2-10.1) x10-3/uL RBC (3.90-5.90) x10(6)uL Hgb (12.9-17.7) g/dL Hct (38.3-50.1) % MCV (80.8-98.7) fL MCH (27.0-33.3) pg MCHC (28.7-35.3) g/dL RDW (12.4-15.0) % Plt Count (117-477) x10(3)uL D-Dimer, Quantitative 0.81 H (0.0-0.59) mg/LFEU Sodium (135-145) mmol/L Potassium (3.5-5.3) mmol/L Chloride (100-110) mmol/L Carbon Dioxide (21-32) mmol/L BUN (7-18) mg/dL Creatinine (0.70-1.30) mg/dL Est Cr Clr Drug Dosing Estimated GFR (MDRD) (>60) BUN/Creatinine Ratio (9-20) Glucose (80-116) mg/dL Calcium (8.6-10.2) mg/dL Troponin I 14.8 (4.0-60.3) pg/mL C-Reactive Protein (0.5-0.9) mg/dL Urine Color (YELLOW) Urine Appearance (CLEAR) Urine pH (5.0-6.5) Ur Specific [place] (1.010-1.025) Urine Protein (NEGATIVE) mg/dL Urine Glucose (UA) (NORMAL) mg/dL Urine Ketones (NEGATIVE) mg/dL Urine Occult Blood (NEGATIVE) Urine Nitrite (NEGATIVE) Urine Bilirubin (NEGATIVE) Urine Urobilinogen (NEGATIVE) mg/dL Ur Leukocyte Esterase (NEGATIVE) Urine WBC (0-5) Ur Squamous Epith Cells (NS,R,O) Urine Bacteria (NS) SARS-CoV-2 RNA (EDILIA) Negative (NEGATIVE) 08/31/21 Range/Units 14:02 WBC (3.2-10.1) x10-3/uL RBC (3.90-5.90) x10(6)uL Hgb (12.9-17.7) g/dL Hct (38.3-50.1) % MCV (80.8-98.7) fL MCH (27.0-33.3) pg MCHC (28.7-35.3) g/dL RDW (12.4-15.0) % Plt Count (117-477) x10(3)uL D-Dimer, Quantitative (0.0-0.59) mg/LFEU Sodium (135-145) mmol/L Potassium (3.5-5.3) mmol/L Chloride (100-110) mmol/L Carbon Dioxide (21-32) mmol/L BUN (7-18) mg/dL Creatinine (0.70-1.30) mg/dL Est Cr Clr Drug Dosing Estimated GFR (MDRD) (>60) BUN/Creatinine Ratio (9-20) Glucose (80-116) mg/dL Calcium (8.6-10.2) mg/dL Troponin I (4.0-60.3) pg/mL C-Reactive Protein (0.5-0.9) mg/dL Urine Color Yellow (YELLOW) Urine Appearance Clear (CLEAR) Urine pH 6.0 (5.0-6.5) Ur Specific [place] 1.015 (1.010-1.025) Urine Protein Negative (NEGATIVE) mg/dL Urine Glucose (UA) Normal (NORMAL) mg/dL Urine Ketones Negative (NEGATIVE) mg/dL Urine Occult Blood Negative (NEGATIVE) Urine Nitrite Negative (NEGATIVE) Urine Bilirubin Negative (NEGATIVE) Urine Urobilinogen Normal (NEGATIVE) mg/dL Ur Leukocyte Esterase Negative (NEGATIVE) Urine WBC 0-5 (0-5) Ur Squamous Epith Cells Occasional (NS,R,O) Urine Bacteria Few H (NS) SARS-CoV-2 RNA (EDILIA) (NEGATIVE) Med Orders - Current: Current Medications Albuterol/Ipratropium (Albuterol/Ipratropium 3.0-0.5 Mg/3 Ml Neb Soln) 3 ml NEB Q4H [facility] Last Admin: 09/01/21 06:50 Dose: 3 ml Documented by: Atorvastatin Calcium (Atorvastatin 40 Mg Tab) 40 mg PO BEDTIME JAZMIN Enoxaparin Sodium (Enoxaparin 40 Mg/0.4 Ml Syringe) 40 mg SUBCUT Q24H [facility] Last Admin: 08/31/21 15:48 Dose: 40 mg Documented by: Azithromycin 500 mg/ Sodium (Chloride) 250 mls @ 250 mls/hr IV Q24H [facility] Last Admin: 08/31/21 15:36 Dose: 250 mls/hr Documented by: Methylprednisolone Sodium Succinate (Methylprednisolone Sodium Succinate 125 Mg/2 Ml Sdv) 125 mg IVPUSH Q12H [facility] Sodium Chloride (Sodium Chloride 0.9% 10 Ml Syringe) 10 ml FLUSH ASDIRECTED PRN PRN Reason: Keep Vein Open Last Admin: 09/01/21 06:46 Dose: 10 ml Documented by: Discontinued Medications Albuterol (Albuterol 0.083% 2.5 Mg/3 Ml Neb Soln) 2.5 mg NEB ONETIME ONE Stop: 08/31/21 09:47 Last Admin: 08/31/21 10:01 Dose: 2.5 mg Documented by: Albuterol/Ipratropium (Albuterol/Ipratropium 3.0-0.5 Mg/3 Ml Neb Soln) 3 ml NEB ONETIME ONE Stop: 08/31/21 11:06 Last Admin: 08/31/21 11:10 Dose: 3 ml Documented by: Lactated Ringer's (Ringers, Lactated) 1,000 mls @ 125 mls/hr IV ASDIRECTED JAZMIN Last Admin: 09/01/21 04:25 Dose: 125 mls/hr Documented by: Iopamidol (Iopamidol 755 Mg/Ml 75 Ml Bottle) 66 ml IV ONETIME ONE Stop: 08/31/21 12:00 Last Admin: 08/31/21 12:02 Dose: 66 ml Documented by: Methylprednisolone Sodium Succinate (Methylprednisolone Sodium Succinate 125 Mg/2 Ml Sdv) 125 mg IVPUSH Q8H [facility] Last Admin: 09/01/21 06:46 Dose: 125 mg Documented by: - Exam Quality Assessment: Supplemental Oxygen General: Alert, Oriented, Cooperative Neck: Supple Lungs: Clear to Auscultation, Decreased Breath Sounds Extremities: No Pedal Edema - Patient Data Lab Results Last 24 hrs: Laboratory Results - last 24 hr 08/31/21 08/31/21 08/31/21 Range/Units 09:55 09:55 09:55 WBC 3.2 (3.2-10.1) x10-3/uL RBC 3.19 L (3.90-5.90) x10(6)uL Hgb 10.9 L (12.9-17.7) g/dL Hct 33.1 L (38.3-50.1) % MCV 103.7 H (80.8-98.7) fL MCH 34.2 H (27.0-33.3) pg MCHC 33.0 (28.7-35.3) g/dL RDW 15.1 H (12.4-15.0) % Plt Count 266 (117-477) x10(3)uL D-Dimer, Quantitative (0.0-0.59) mg/LFEU Sodium 143 (135-145) mmol/L Potassium 4.4 (3.5-5.3) mmol/L Chloride 103 (100-110) mmol/L Carbon Dioxide 33 H (21-32) mmol/L BUN 25 H (7-18) mg/dL Creatinine 1.2 (0.70-1.30) mg/dL Est Cr Clr Drug Dosing TNP Estimated GFR (MDRD) 58 L (>60) BUN/Creatinine Ratio 20.8 H (9-20) Glucose 87 (80-116) mg/dL Calcium 8.6 (8.6-10.2) mg/dL Troponin I (4.0-60.3) pg/mL C-Reactive Protein 7.7 H* (0.5-0.9) mg/dL Urine Color (YELLOW) Urine Appearance (CLEAR) Urine pH (5.0-6.5) Ur Specific [place] (1.010-1.025) Urine Protein (NEGATIVE) mg/dL Urine Glucose (UA) (NORMAL) mg/dL Urine Ketones (NEGATIVE) mg/dL Urine Occult Blood (NEGATIVE) Urine Nitrite (NEGATIVE) Urine Bilirubin (NEGATIVE) Urine Urobilinogen (NEGATIVE) mg/dL Ur Leukocyte Esterase (NEGATIVE) Urine WBC (0-5) Ur Squamous Epith Cells (NS,R,O) Urine Bacteria (NS) SARS-CoV-2 RNA (EDILIA) (NEGATIVE) 08/31/21 08/31/21 08/31/21 Range/Units 09:55 09:55 10:14 WBC (3.2-10.1) x10-3/uL RBC (3.90-5.90) x10(6)uL Hgb (12.9-17.7) g/dL Hct (38.3-50.1) % MCV (80.8-98.7) fL MCH (27.0-33.3) pg MCHC (28.7-35.3) g/dL RDW (12.4-15.0) % Plt Count (117-477) x10(3)uL D-Dimer, Quantitative 0.81 H (0.0-0.59) mg/LFEU Sodium (135-145) mmol/L Potassium (3.5-5.3) mmol/L Chloride (100-110) mmol/L Carbon Dioxide (21-32) mmol/L BUN (7-18) mg/dL Creatinine (0.70-1.30) mg/dL Est Cr Clr Drug Dosing Estimated GFR (MDRD) (>60) BUN/Creatinine Ratio (9-20) Glucose (80-116) mg/dL Calcium (8.6-10.2) mg/dL Troponin I 14.8 (4.0-60.3) pg/mL C-Reactive Protein (0.5-0.9) mg/dL Urine Color (YELLOW) Urine Appearance (CLEAR) Urine pH (5.0-6.5) Ur Specific [place] (1.010-1.025) Urine Protein (NEGATIVE) mg/dL Urine Glucose (UA) (NORMAL) mg/dL Urine Ketones (NEGATIVE) mg/dL Urine Occult Blood (NEGATIVE) Urine Nitrite (NEGATIVE) Urine Bilirubin (NEGATIVE) Urine Urobilinogen (NEGATIVE) mg/dL Ur Leukocyte Esterase (NEGATIVE) Urine WBC (0-5) Ur Squamous Epith Cells (NS,R,O) Urine Bacteria (NS) SARS-CoV-2 RNA (EDILIA) Negative (NEGATIVE) 08/31/21 Range/Units 14:02 WBC (3.2-10.1) x10-3/uL RBC (3.90-5.90) x10(6)uL Hgb (12.9-17.7) g/dL Hct (38.3-50.1) % MCV (80.8-98.7) fL MCH (27.0-33.3) pg MCHC (28.7-35.3) g/dL RDW (12.4-15.0) % Plt Count (117-477) x10(3)uL D-Dimer, Quantitative (0.0-0.59) mg/LFEU Sodium (135-145) mmol/L Potassium (3.5-5.3) mmol/L Chloride (100-110) mmol/L Carbon Dioxide (21-32) mmol/L BUN (7-18) mg/dL Creatinine (0.70-1.30) mg/dL Est Cr Clr Drug Dosing Estimated GFR (MDRD) (>60) BUN/Creatinine Ratio (9-20) Glucose (80-116) mg/dL Calcium (8.6-10.2) mg/dL Troponin I (4.0-60.3) pg/mL C-Reactive Protein (0.5-0.9) mg/dL Urine Color Yellow (YELLOW) Urine Appearance Clear (CLEAR) Urine pH 6.0 (5.0-6.5) Ur Specific [place] 1.015 (1.010-1.025) Urine Protein Negative (NEGATIVE) mg/dL Urine Glucose (UA) Normal (NORMAL) mg/dL Urine Ketones Negative (NEGATIVE) mg/dL Urine Occult Blood Negative (NEGATIVE) Urine Nitrite Negative (NEGATIVE) Urine Bilirubin Negative (NEGATIVE) Urine Urobilinogen Normal (NEGATIVE) mg/dL Ur Leukocyte Esterase Negative (NEGATIVE) Urine WBC 0-5 (0-5) Ur Squamous Epith Cells Occasional (NS,R,O) Urine Bacteria Few H (NS) SARS-CoV-2 RNA (EDILIA) (NEGATIVE) Result Diagrams: 08/31/21 09:55 08/31/21 09:55 Sepsis Event Note - Evaluation Sepsis Screening Result: No Definite Risk - Focused Exam Vital Signs: Vital Signs Temp Pulse Resp BP Pulse Ox Pulse Ox 09/01/21 06:50 54 L 98 09/01/21 04:00 98.3 F 70 18 151/85 H 96 09/01/21 03:30 70 95 08/31/21 22:48 55 L 96 - Problem List & Annotations (1) Squamous cell carcinoma lung SNOMED Code(s): 836386798, 539686854 Code(s): C34.90 - MALIGNANT NEOPLASM OF UNSP PART OF UNSP BRONCHUS OR LUNG Status: Acute Current Visit: Yes (2) Palliative care status SNOMED Code(s): 348585548 Code(s): Z51.5 - ENCOUNTER FOR PALLIATIVE CARE Status: Acute Current Visit: Yes (3) Weakness SNOMED Code(s): 52831185 Code(s): R53.1 - WEAKNESS Status: Acute Current Visit: Yes (4) Anemia SNOMED Code(s): 788251212 Code(s): D64.9 - ANEMIA, UNSPECIFIED Status: Acute Current Visit: No Qualifiers: Anemia type: iron deficiency (5) COPD exacerbation SNOMED Code(s): 194063244 Code(s): J44.1 - CHRONIC OBSTRUCTIVE PULMONARY DISEASE W (ACUTE) EXACERBATION Status: Acute Current Visit: No (6) Prostate CA SNOMED Code(s): 259600646 Code(s): C61 - MALIGNANT NEOPLASM OF PROSTATE Status: Chronic Current Visit: No - Problem List Review Problem List Initiated/Reviewed/Updated: Yes - My Orders Last 24 Hours: My Active Orders 08/31/21 14:08 EKG 12 Lead [EK] Routine 08/31/21 14:09 Up ad Sherice [RC] ASDIRECTED 08/31/21 14:10 RT Aerosol Therapy [RC] ASDIRECTED 08/31/21 15:00 Albuterol/Ipratropium [DuoNeb 3.0-0.5 MG/3 ML] 3 ml NEB Q4H Azithromycin [Zithromax] 500 mg Sodium Chloride 0.9% [Normal Saline (AdvBag)] 250 ml IV Q24H Enoxaparin [Lovenox] 40 mg SUBCUT Q24H 08/31/21 Dinner Regular Diet [DIET] 08/31/21 16:26 Code Status [Resuscitation Status] Routine 08/31/21 16:50 Consult to Occupational Therapy [OT Evaluation and Treatment] [CONS] Routine Consult to Physical Therapy [PT Evaluation and Treatment] [CONS] Routine 09/01/21 09:41 Vital Signs [RC] QSHIFT 09/01/21 09:43 Convert IV to Saline Lock [OM.PC] Routine 09/01/21 09:45 methylPREDNISolone Sod Succ [Solu-MEDROL] 125 mg IVPUSH Q12H 09/01/21 21:00 atorvaSTATin [Lipitor] 40 mg PO BEDTIME 09/02/21 09:00 Furosemide [Lasix] 20 mg PO DAILY Tamsulosin [Flomax] 0.4 mg PO DAILY - Plan Plan:: 1. PT/OT eval today 2. DC IV fluids and saline lock IV 3. Change Solu-Medrol to Q 12 hours 4. Change vitals to every shift. Not to wake him to do vitals night. 5. Evaluate for home O2
--- NOTE | 2021-09-01 11:33 | CR ---
CHEST TWO VIEWS INDICATION: Cough, shortness of breath. FINDINGS: PA and two lateral views of the chest 08/31/21 were compared with 08/26/21 and 02/21/16. Overlying EKG leads are noted. The heat did not appear enlarged. The aorta is tortuous with calcification in the arch and minimally in the descending portion. Somewhat diminished bone density is suggested which may be on the basis of osteomalacia or osteoporosis and should be correlated clinically. Flattened diaphragm leads with prominent AP diameter and hyperaeration strongly suggest COPD which appears similar to the previous examination. Patchy infiltration is noted posteriorly, mostly in the left lower lobe but also minimally in the right lower lobe with blunting of both posterior sulci, suggesting minimal pneumonia and pleuritis at the lung bases. Otherwise heavy markings are also noted compatible with mild to moderate pulmonary fibrosis and appears similar to the previous study in that regard. A moderate dextroconcave scoliosis of the mid thoracic spine is also noted. IMPRESSION: 1. Probable bibasilar pneumonia and pleuritis. 2. ASD aorta. 3. COPD. 4. Osteoporosis and scoliosis. 5. Pulmonary fibrosis. Report was called Dr. Salinas for Dr. Cyr at 1046 hours 09/01/21/ ESTER
[2021-09-01] MEDS ORDERED: Levofloxacin 750 MG Tab PO SCH (14:15)
[2021-09-01] MEDS: Enoxaparin 40 MG/0.4 ML Syringe SUBCUT SCH (16:20)
[2021-09-01] MEDS ORDERED: Tamsulosin 0.4 MG Cap.ER *PTOM PO SCH (21:00)
[2021-09-01] MEDS ORDERED: atorvaSTATin 40 MG Tab PO SCH (21:00)
[2021-09-01] MEDS ORDERED: atorvaSTATin 40 MG Tab *PTOM PO SCH (21:00)
[2021-09-02] MEDS: Albuterol/Ipratropium 3.0-0.5 MG/3 ML Neb Soln NEB SCH ×3 (03:09→13:13)
[2021-09-02] MEDS: methylPREDNISolone Sodium Succinate 125 MG/2 ML SDV IVPUSH SCH (06:15)
--- NOTE | 2021-09-02 08:08 | PCM.PN ---
- General Info Date of Service: 09/02/21 Admission Dx/Problem (Free Text): Patient feels much better today. Still coughing some green phlegm up. His breathing is better. Still little wheezing is still short of breath. The oxygen makes him feel better. He is getting around and stronger. His watch him yesterday and felt comfortable taking him home today. - Patient Data Vitals - Most Recent: Last Vital Signs Temp 98.0 F 09/01/21 21:50 Pulse 56 L 09/01/21 21:50 Resp 16 09/01/21 21:50 BP 179/101 H 09/01/21 21:50 Pulse Ox 98 09/01/21 21:50 Weight - Most Recent: 190 lb Med Orders - Current: Current Medications Albuterol/Ipratropium (Albuterol/Ipratropium 3.0-0.5 Mg/3 Ml Neb Soln) 3 ml NEB Q4H [facility] Last Admin: 09/02/21 06:14 Dose: 3 ml Documented by: Atorvastatin Calcium (Atorvastatin 40 Mg Tab) 40 mg PO BEDTIME JAZMIN Enoxaparin Sodium (Enoxaparin 40 Mg/0.4 Ml Syringe) 40 mg SUBCUT Q24H [facility] Last Admin: 09/01/21 16:20 Dose: 40 mg Documented by: Levofloxacin (Levofloxacin 750 Mg Tab) 750 mg PO Q24H [facility] Last Admin: 09/01/21 16:13 Dose: 750 mg Documented by: Methylprednisolone Sodium Succinate (Methylprednisolone Sodium Succinate 125 Mg/2 Ml Sdv) 125 mg IVPUSH Q12H [facility] Last Admin: 09/02/21 06:15 Dose: 125 mg Documented by: Sodium Chloride (Sodium Chloride 0.9% 10 Ml Syringe) 10 ml FLUSH ASDIRECTED PRN PRN Reason: Keep Vein Open Last Admin: 09/01/21 18:48 Dose: 10 ml Documented by: Tamsulosin HCl (Tamsulosin 0.4 Mg Cap.Er *Ptom) 0.4 mg PO BEDTIME [facility] Last Admin: 09/01/21 21:54 Dose: 0.4 mg Documented by: Discontinued Medications Albuterol (Albuterol 0.083% 2.5 Mg/3 Ml Neb Soln) 2.5 mg NEB ONETIME ONE Stop: 08/31/21 09:47 Last Admin: 08/31/21 10:01 Dose: 2.5 mg Documented by: Albuterol/Ipratropium (Albuterol/Ipratropium 3.0-0.5 Mg/3 Ml Neb Soln) 3 ml NEB ONETIME ONE Stop: 08/31/21 11:06 Last Admin: 08/31/21 11:10 Dose: 3 ml Documented by: Albuterol/Ipratropium (Albuterol/Ipratropium 3.0-0.5 Mg/3 Ml Neb Soln) 3 ml NEB Q4H [facility] Last Admin: 09/01/21 06:50 Dose: 3 ml Documented by: Atorvastatin Calcium (Atorvastatin 40 Mg Tab *Ptom*) 40 mg PO BEDTIME JAZMIN Lactated Ringer's (Ringers, Lactated) 1,000 mls @ 125 mls/hr IV ASDIRECTED [facility] Last Admin: 09/01/21 04:25 Dose: 125 mls/hr Documented by: Azithromycin 500 mg/ Sodium (Chloride) 250 mls @ 250 mls/hr IV Q24H [facility] Last Admin: 08/31/21 15:36 Dose: 250 mls/hr Documented by: Influenza Virus Vaccine (Flu Vacc [id number](6mos Up)/Pf 60 Mcg/0.5 Ml Syringe) 60 mcg IM .ONCE ONE Stop: 09/02/21 08:01 Iopamidol (Iopamidol 755 Mg/Ml 75 Ml Bottle) 66 ml IV ONETIME ONE Stop: 08/31/21 12:00 Last Admin: 08/31/21 12:02 Dose: 66 ml Documented by: Methylprednisolone Sodium Succinate (Methylprednisolone Sodium Succinate 125 Mg/2 Ml Sdv) 125 mg IVPUSH Q8H [facility] Last Admin: 09/01/21 06:46 Dose: 125 mg Documented by: - Exam General: Alert, Oriented Lungs: Decreased Breath Sounds (Lung sounds a little bit clear today but still decreased breath sounds.), Wheezing (Very mild) Cardiovascular: Regular Rate, Regular Rhythm, No Murmurs Extremities: No Pedal Edema - Patient Data Result Diagrams: 08/31/21 09:55 08/31/21 09:55 Sepsis Event Note - Evaluation Sepsis Screening Result: No Definite Risk - Focused Exam Vital Signs: Vital Signs Temp Pulse Resp BP Pulse Ox 09/01/21 21:50 98.0 F 56 L 16 179/101 H 98 - Problem List & Annotations (1) Squamous cell carcinoma lung SNOMED Code(s): 876237244, 034992034 Code(s): C34.90 - MALIGNANT NEOPLASM OF UNSP PART OF UNSP BRONCHUS OR LUNG Status: Acute Current Visit: Yes (2) Palliative care status SNOMED Code(s): 424004650 Code(s): Z51.5 - ENCOUNTER FOR PALLIATIVE CARE Status: Acute Current Visit: Yes (3) Weakness SNOMED Code(s): 97450980 Code(s): R53.1 - WEAKNESS Status: Acute Current Visit: Yes (4) Anemia SNOMED Code(s): 532058082 Code(s): D64.9 - ANEMIA, UNSPECIFIED Status: Acute Current Visit: No Qualifiers: Anemia type: iron deficiency (5) COPD exacerbation SNOMED Code(s): 774842770 Code(s): J44.1 - CHRONIC OBSTRUCTIVE PULMONARY DISEASE W (ACUTE) EXACERBATION Status: Acute Current Visit: No (6) Prostate CA SNOMED Code(s): 373259353 Code(s): C61 - MALIGNANT NEOPLASM OF PROSTATE Status: Chronic Current Visit: No (7) Pneumonia SNOMED Code(s): 451690974 Code(s): J18.9 - PNEUMONIA, UNSPECIFIED ORGANISM Status: Acute Current Visit: Yes Qualifiers: Pneumonia type: due to unspecified organism Laterality: bilateral - Problem List Review Problem List Initiated/Reviewed/Updated: Yes - My Orders Last 24 Hours: My Active Orders 09/01/21 09:41 Vital Signs [RC] QSHIFT 09/01/21 09:43 Convert IV to Saline Lock [OM.PC] Routine 09/01/21 11:00 Albuterol/Ipratropium [DuoNeb 3.0-0.5 MG/3 ML] 3 ml NEB Q4H 09/01/21 14:15 levoFLOXacin [Levaquin] 750 mg PO Q24H 09/01/21 18:00 methylPREDNISolone Sod Succ [Solu-MEDROL] 125 mg IVPUSH Q12H 09/01/21 21:00 Tamsulosin [Flomax] 0.4 mg PO BEDTIME atorvaSTATin [Lipitor] 40 mg PO BEDTIME 09/02/21 07:39 Vaccine to be Administered/Admin Charge [RC] ASDIRECTED - Plan Plan:: 1. Patient on Levaquin because the radiologist thought there might be a little bit of pneumonia in the bases 2. Will discharge on home O2 and a tapering dose of prednisone. 3. 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
[2021-09-02] MEDS ORDERED: Furosemide 20 MG Tab PO SCH (09:00)
--- NOTE | 2021-09-02 09:50 | PCM.DCSUM1 ---
Discharge Summary - Hospital Course Free Text/Narrative:: Hospital course-patient was admitted and placed on Solu-Medrol 125 mg every 8 hours and Zithromax 500 mg IV daily. Oxygen was also administered. Patient when he walked dropped to 82% so he qualified for oxygen. Next day he felt better. His dry cough became productive. CT did not show much but chest x-ray showed possible pneumonia so the radiologist thought he might have pneumonia so I stopped his Zithromax and start him on Levaquin 750 mg a day. Patient wanted to go home does not want home health. He was willing to go on oxygen which he does need. He does have severe COPD on his chest x-ray and CT. Patient will be discharged home on a tapering dose of prednisone, O2, Levaquin. Brief History: 80 yo male was seen here 5 d ago for respiratory complaints. He had a CXR that showed pulmonary fibrosis and COPD. He was sent home with bronchodilators, azithromycin and prednisone. He has not followed up with his primary since then. His Covid test on that visit was negative and he had a normal WBC ct. His oxygen sats on [employer] were 96%. Since his ER visit he has not run a fever, but is more SOB. He will be out of his prednisone tomorrow. 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 He has a nebulizer at home that he did use today with some benefit. Is still smoking, but has cut down. Has stage 2 lung CA. Diagnosis: Stroke: No - Discharge Data Discharge Date: 09/02/21 Discharge Disposition: Home, Self-Care 01 Condition: Stable - Referral to Home Health Primary Care Physician: PCP None - Discharge Diagnosis/Problem(s) (1) Squamous cell carcinoma lung SNOMED Code(s): 706041691, 200264169 ICD Code: C34.90 - MALIGNANT NEOPLASM OF UNSP PART OF UNSP BRONCHUS OR LUNG Status: Acute Current Visit: Yes (2) Palliative care status SNOMED Code(s): 394179365 ICD Code: Z51.5 - ENCOUNTER FOR PALLIATIVE CARE Status: Acute Current Visit: Yes (3) Weakness SNOMED Code(s): 65006962 ICD Code: R53.1 - WEAKNESS Status: Acute Current Visit: Yes (4) Anemia SNOMED Code(s): 244331717 ICD Code: D64.9 - ANEMIA, UNSPECIFIED Status: Acute Current Visit: No Qualifiers: Anemia type: iron deficiency (5) COPD exacerbation SNOMED Code(s): 618723932 ICD Code: J44.1 - CHRONIC OBSTRUCTIVE PULMONARY DISEASE W (ACUTE) EXACERBATION Status: Acute Current Visit: No (6) Prostate CA SNOMED Code(s): 988493889 ICD Code: C61 - MALIGNANT NEOPLASM OF PROSTATE Status: Chronic Current Visit: No (7) Pneumonia SNOMED Code(s): 160704743 ICD Code: J18.9 - PNEUMONIA, UNSPECIFIED ORGANISM Status: Acute Current Visit: Yes Qualifiers: Pneumonia type: due to unspecified organism Laterality: bilateral - Patient Summary/Data Consults: Consultations 08/31/21 16:50 Consult to Occupational Therapy [OT Evaluation and Treatment] [CONS] Routine Please Evaluate and Treat. OT Reason for Consult: Strengthening This query below is only for informational purposes and is not editable. Admission Diagnosis/Problem: COPD, Moderate chronic obstructive pulmonary disease Consult to Physical Therapy [PT Evaluation and Treatment] [CONS] Routine Please Evaluate and Treat. PT Reason for Consult: Strengthening This query below is only for informational purposes and is not editable. Admission Diagnosis/Problem: COPD, Moderate chronic obstructive pulmonary disease - Patient Instructions Diet: Regular Diet as Tolerated Activity: As Tolerated Driving: May Drive Today Showering/Bathing: May Shower Other/Special Instructions: 1. Recheck with Scarlett Lindsay in 1 week. 2. Home O2 2 L nasal cannula. Patient would like to have the portable crew trainer because he has a job. 3. Patient does not want home health. - Discharge Plan *PRESCRIPTION DRUG MONITORING PROGRAM REVIEWED*: Not Applicable *COPY OF PRESCRIPTION DRUG MONITORING REPORT IN PATIENT WILLIAM: Not Applicable Prescriptions/Med Rec: levoFLOXacin [Levaquin] 750 mg PO Q24H #6 tablet predniSONE [Prednisone] 10 mg PO ASDIRECTED #60 tablet Home Medications: Home Meds Tamsulosin [Flomax] 0.4 mg PO BEDTIME 02/18/16 [History] atorvaSTATin [Lipitor] 40 mg PO BEDTIME 02/18/16 [History] Albuterol Sulfate [Albuterol Sulfate Hfa] 2 inh IH Q4H PRN #1 hfa.aer.ad 08/26/21 [Rx] Umeclidinium Brm/Vilanterol Tr [Anoro Ellipta 62.5-25 MCG] 1 puff INH DAILY 08/26/21 [History] Albuterol Sulfate 3 ml INH Q6H PRN 09/01/21 [History] Budesonide [Pulmicort] 2 ml INH BID 09/01/21 [History] Albuterol/Ipratropium [DuoNeb 3.0-0.5 MG/3 ML] 3 ml NEB Q4H neb 09/02/21 [Rx] levoFLOXacin [Levaquin] 750 mg PO Q24H #6 tablet 09/02/21 [Rx] predniSONE [Prednisone] 10 mg PO ASDIRECTED #60 tablet 09/02/21 [Rx] Forms: ED Department Discharge Referrals: PCP,None [Primary Care Provider] - - Discharge Summary/Plan Comment DC Time >30 min.: No Total # of Minutes for Discharge Time: 15 - Patient Data Vitals - Most Recent: Last Vital Signs Temp 98.0 F 09/01/21 21:50 Pulse 56 L 09/01/21 21:50 Resp 16 09/01/21 21:50 BP 179/101 H 09/01/21 21:50 Pulse Ox 98 09/01/21 21:50 Weight - Most Recent: 190 lb Med Orders - Current: Current Medications Albuterol/Ipratropium (Albuterol/Ipratropium 3.0-0.5 Mg/3 Ml Neb Soln) 3 ml NEB Q4H [facility] Last Admin: 09/02/21 06:14 Dose: 3 ml Documented by: Atorvastatin Calcium (Atorvastatin 40 Mg Tab) 40 mg PO BEDTIME JAZMIN Enoxaparin Sodium (Enoxaparin 40 Mg/0.4 Ml Syringe) 40 mg SUBCUT Q24H [facility] Last Admin: 09/01/21 16:20 Dose: 40 mg Documented by: Levofloxacin (Levofloxacin 750 Mg Tab) 750 mg PO Q24H [facility] Last Admin: 09/01/21 16:13 Dose: 750 mg Documented by: Methylprednisolone Sodium Succinate (Methylprednisolone Sodium Succinate 125 Mg/2 Ml Sdv) 125 mg IVPUSH Q12H [facility] Last Admin: 09/02/21 06:15 Dose: 125 mg Documented by: Sodium Chloride (Sodium Chloride 0.9% 10 Ml Syringe) 10 ml FLUSH ASDIRECTED PRN PRN Reason: Keep Vein Open Last Admin: 09/01/21 18:48 Dose: 10 ml Documented by: Tamsulosin HCl (Tamsulosin 0.4 Mg Cap.Er *Ptom) 0.4 mg PO BEDTIME [facility] Last Admin: 09/01/21 21:54 Dose: 0.4 mg Documented by: Discontinued Medications Albuterol (Albuterol 0.083% 2.5 Mg/3 Ml Neb Soln) 2.5 mg NEB ONETIME ONE Stop: 08/31/21 09:47 Last Admin: 08/31/21 10:01 Dose: 2.5 mg Documented by: Albuterol/Ipratropium (Albuterol/Ipratropium 3.0-0.5 Mg/3 Ml Neb Soln) 3 ml NEB ONETIME ONE Stop: 08/31/21 11:06 Last Admin: 08/31/21 11:10 Dose: 3 ml Documented by: Albuterol/Ipratropium (Albuterol/Ipratropium 3.0-0.5 Mg/3 Ml Neb Soln) 3 ml NEB Q4H [facility] Last Admin: 09/01/21 06:50 Dose: 3 ml Documented by: Atorvastatin Calcium (Atorvastatin 40 Mg Tab *Ptom*) 40 mg PO BEDTIME JAZMIN Lactated Ringer's (Ringers, Lactated) 1,000 mls @ 125 mls/hr IV ASDIRECTED [facility] Last Admin: 09/01/21 04:25 Dose: 125 mls/hr Documented by: Azithromycin 500 mg/ Sodium (Chloride) 250 mls @ 250 mls/hr IV Q24H [facility] Last Admin: 08/31/21 15:36 Dose: 250 mls/hr Documented by: Influenza Virus Vaccine (Flu Vacc [id number](6mos Up)/Pf 60 Mcg/0.5 Ml Syringe) 60 mcg IM .ONCE ONE Stop: 09/02/21 08:01 Last Admin: 09/02/21 08:31 Dose: 60 mcg Documented by: Iopamidol (Iopamidol 755 Mg/Ml 75 Ml Bottle) 66 ml IV ONETIME ONE Stop: 08/31/21 12:00 Last Admin: 08/31/21 12:02 Dose: 66 ml Documented by: Methylprednisolone Sodium Succinate (Methylprednisolone Sodium Succinate 125 Mg/2 Ml Sdv) 125 mg IVPUSH Q8H [facility] Last Admin: 09/01/21 06:46 Dose: 125 mg Documented by:
[2021-09-02 10:59] VITALS: BP 137/70; PULSE 61
--- NOTE | 2021-09-04 18:08 | PCM.EKG ---
#1 Interpretation EKG Date: 08/31/21 EKG Interpretation Comments: Normal sinus rhythm with right bundle branch block.
== END 2021-09-02 11:35 | disposition home or self-care (01) ==
LOC: FB.ED 09:24 → FB.MS 14:03
PROVIDERS: ADMIT Family Medicine; ATTEND Family Medicine
DX: J84.10 Pulmonary fibrosis, unspecified (principal); J44.9 Chronic obstructive pulmonary disease, unspecified; E78.00 Pure hypercholesterolemia, unspecified; I10 Essential (primary) hypertension; J44.1 Chronic obstructive pulmonary disease with (acute) exacerbation; F17.210 Nicotine dependence, cigarettes, uncomplicated; C34.90 Malignant neoplasm of unspecified part of unspecified bronchus or lung; D64.9 Anemia, unspecified; C61 Malignant neoplasm of prostate; Z20.822 Contact with and (suspected) exposure to COVID-19; Z79.899 Other long term (current) drug therapy; Z98.890 Other specified postprocedural states; Z88.0 Allergy status to penicillin
CPT/HCPCS: 36415; 71046; 71275; 80048; 81001; 84484; 85027; 85379; 86140; 90686; 93005; 94640; 96372; 96374; 96375; 96376; 97161; 97165; 99285; A9270; G0008; G0378; J0456; J1650; J2930; J7050; J7120; Q9967; U0002; J7620-GY

== ENCOUNTER 2022-05-27 13:23 | Inpatient (IN) | payer MEDICARE, BC ==
[2022-05-27] MEDS: Sodium Chloride 0.9% 10 ML Syringe FLUSH PRN ×2 (15:25→15:35)
[2022-05-27] MEDS: Enoxaparin 40 MG/0.4 ML Syringe SUBCUT SCH (15:28)
[2022-05-27] MEDS: methylPREDNISolone Sodium Succinate 125 MG/2 ML SDV IVPUSH SCH ×2 (15:32→23:15)
[2022-05-27] MEDS: Sodium Chloride 0.9% 1,000 ML IV SCH (15:38)
[2022-05-27] MEDS: Levofloxacin/Dextrose 5%-Water 500 MG in Premix Bag 1 BAG IV SCH (15:39)
[2022-05-27] MEDS: Albuterol/Ipratropium 3.0-0.5 MG/3 ML Neb Soln NEB SCH ×2 (15:45→21:51)
[2022-05-27 15:49] LABS: ESTIMATED GFR 75 mL/min (>60)
[2022-05-27] MEDS: atorvaSTATin 40 MG Tab PO SCH (21:55)
[2022-05-28] MEDS: Sodium Chloride 0.9% 1,000 ML IV SCH (06:10)
[2022-05-28] MEDS: Levothyroxine 75 MCG Tab PO SCH (06:10)
[2022-05-28] MEDS: Albuterol/Ipratropium 3.0-0.5 MG/3 ML Neb Soln NEB SCH ×4 (06:10→20:43)
[2022-05-28] MEDS: methylPREDNISolone Sodium Succinate 125 MG/2 ML SDV IVPUSH SCH (06:10)
[2022-05-28] MEDS: Enoxaparin 40 MG/0.4 ML Syringe SUBCUT SCH (14:48)
[2022-05-28] MEDS: Levofloxacin/Dextrose 5%-Water 500 MG in Premix Bag 1 BAG IV SCH (14:50)
[2022-05-28] MEDS: atorvaSTATin 40 MG Tab PO SCH (20:43)
[2022-05-29] MEDS: Levothyroxine 75 MCG Tab PO SCH (06:23)
[2022-05-29] MEDS: Albuterol/Ipratropium 3.0-0.5 MG/3 ML Neb Soln NEB SCH (06:23)
[2022-05-29] MEDS: Sodium Chloride 0.9% 10 ML Syringe FLUSH PRN (08:50)
[2022-05-29] MEDS ORDERED: methylPREDNISolone Sodium Succinate 125 MG/2 ML SDV IVPUSH SCH (09:00)
[2022-05-29 09:25] VITALS: BP 113/50; PULSE 92
== END 2022-05-29 09:35 | disposition home or self-care (01) | DRG 190 ==
LOC: FB.MS 13:50 → UNDOADMIN 13:50 → FB.MS 14:50
PROVIDERS: ADMIT Family Medicine; ATTEND Family Medicine
DX: J44.0 Chronic obstructive pulmonary disease with (acute) lower respiratory infection (principal); J18.9 Pneumonia, unspecified organism; N13.8 Other obstructive and reflux uropathy; J44.1 Chronic obstructive pulmonary disease with (acute) exacerbation; E78.5 Hyperlipidemia, unspecified; Z96.1 Presence of intraocular lens; N40.1 Benign prostatic hyperplasia with lower urinary tract symptoms; D63.0 Anemia in neoplastic disease; F17.210 Nicotine dependence, cigarettes, uncomplicated; Z85.118 Personal history of other malignant neoplasm of bronchus and lung; Z51.5 Encounter for palliative care; Z79.52 Long term (current) use of systemic steroids; Z79.899 Other long term (current) drug therapy; Z79.890 Hormone replacement therapy; Z79.2 Long term (current) use of antibiotics; Z98.42 Cataract extraction status, left eye; Z98.41 Cataract extraction status, right eye; Z97.3 Presence of spectacles and contact lenses; Z85.46 Personal history of malignant neoplasm of prostate; Z92.3 Personal history of irradiation; Z87.81 Personal history of (healed) traumatic fracture; Z98.890 Other specified postprocedural states; Z90.89 Acquired absence of other organs
CPT/HCPCS: 36415; 80053; 81001; 85025; 87040; 87086; 94150; 94640; 94762; 97161-GP; 97165-GO; 99222; 99232; 99238; A9270-GY; J1650; J1956; J2930; J3490; J7030; J7620